=== PATIENT | female | born 1940 | race Caucasian/White ===

== ENCOUNTER → 2017-06-05 | Outpatient (CLI) | payer MEDICARE, OTHER ==
[~2017-06-05] MED LIST: BACTROBAN OINT22 GM EXT; GLUCOSAMINE CH1 EAC9; IOPAMIDOL 370 MG/ML 200 ML INFUS..BTL INJ ONE; MULTIVITAMIN1 EAC2 PO; SODIUM CHLORIDE 0.9% 100 ML ONE; Z.0.VICODIN 5-5001 E PO
[2017-06-05 12:38] LABS: BLOOD UREA NITROGEN 26 mg/dL (7-26); BUN/CREATININE RATIO 31 (6-25); CREATININE, SERUM 0.85 mg/dL (0.57-1.11); EST GLOMERULAR FILTRATION RATE > 60 ML/MIN (60-)
--- NOTE | 2017-06-05 18:24 | Diagnostic Imaging Report ---
History:Carotid stenosis, Comparison studies:CTA of the neck 06/15/2011. Carotid Doppler 08/22/2011 Technique: Axial images were obtained from the thoracic inlet. Coronal and sagittal images reconstructed from the axial data. Intravenous contrast: 100 cc of Omnipaque 300. Findings: Percentage of stenosis will be based on the NASCET criteria Aortic arch and major vessels: Patent. Atherosclerotic calcifications of the aortic arch and branches. Common carotid arteries: Patent. Atherosclerotic calcifications results in less than 20% stenosis. Right internal carotid artery: Complete occlusion of the right internal carotid artery cervical segment from the bulb to the distal cavernous segment. Atherosclerotic calcifications at the ophthalmic segment results in more than 70% stenosis. Reconstitution at the carotid terminus via collaterals of the [place] (A-com, P-comm). No hemodynamically significant stenosis of the MCA or HEENA Left internal carotid artery: Noncalcified atherosclerotic plaque at the bulb without stenosis, improved compared to the previous CTA. Atherosclerotic calcifications of the cavernous segment with less than 30% stenosis. No hemodynamically significant stenosis at the MCA and HEENA. Right vertebral artery: Patent. Atherosclerotic calcifications at the origin results in at least 50% stenosis, assessment is limited due to the high density of the atherosclerotic plaque causing blooming artifact. The remaining cervical vertebral artery appears patent. Left vertebral artery: Patent. Nonstenotic calcified plaque at the intradural segment (V4). Basilar artery: Patent. No abnormalities. Posterior cerebral arteries: Patent. No abnormalities. Anatomical variants: Acom: Patent . Pcoms: Patent. Vertebral arteries: Col-dominant Stable right thyroid lobe nodule IMPRESSION: Cervical CTA: 1. 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 2. Nonstenotic plaque at the left carotid bulb, improved from previous examination and likely related to previous intervention. 3. At least 50% stenosis at the origin of the right vertebral artery secondary to atherosclerotic plaque, calcification limits assessment of the stenosis. No other hemodynamically significant stenosis of the neck vessels Intracranial CTA: 1. Irregular flow at the [place] without hemodynamically significant stenosis. Signed by: DR Rell Kennedy M.D. on 06/05/2017 6:20 PM
--- NOTE | 2017-06-05 18:24 | Diagnostic Imaging Report ---
History:Carotid stenosis, Comparison studies:CTA of the neck 06/15/2011. Carotid Doppler 08/22/2011 Technique: Axial images were obtained from the thoracic inlet. Coronal and sagittal images reconstructed from the axial data. Intravenous contrast: 100 cc of Omnipaque 300. Findings: Percentage of stenosis will be based on the NASCET criteria Aortic arch and major vessels: Patent. Atherosclerotic calcifications of the aortic arch and branches. Common carotid arteries: Patent. Atherosclerotic calcifications results in less than 20% stenosis. Right internal carotid artery: Complete occlusion of the right internal carotid artery cervical segment from the bulb to the distal cavernous segment. Atherosclerotic calcifications at the ophthalmic segment results in more than 70% stenosis. Reconstitution at the carotid terminus via collaterals of the [place] (A-com, P-comm). No hemodynamically significant stenosis of the MCA or HEENA Left internal carotid artery: Noncalcified atherosclerotic plaque at the bulb without stenosis, improved compared to the previous CTA. Atherosclerotic calcifications of the cavernous segment with less than 30% stenosis. No hemodynamically significant stenosis at the MCA and HEENA. Right vertebral artery: Patent. Atherosclerotic calcifications at the origin results in at least 50% stenosis, assessment is limited due to the high density of the atherosclerotic plaque causing blooming artifact. The remaining cervical vertebral artery appears patent. Left vertebral artery: Patent. Nonstenotic calcified plaque at the intradural segment (V4). Basilar artery: Patent. No abnormalities. Posterior cerebral arteries: Patent. No abnormalities. Anatomical variants: Acom: Patent . Pcoms: Patent. Vertebral arteries: Col-dominant Stable right thyroid lobe nodule IMPRESSION: Cervical CTA: 1. 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 2. Nonstenotic plaque at the left carotid bulb, improved from previous examination and likely related to previous intervention. 3. At least 50% stenosis at the origin of the right vertebral artery secondary to atherosclerotic plaque, calcification limits assessment of the stenosis. No other hemodynamically significant stenosis of the neck vessels Intracranial CTA: 1. Irregular flow at the [place] without hemodynamically significant stenosis. Signed by: DR Rell Kennedy M.D. on 06/05/2017 6:20 PM
== END ==
LOC: CT 11:41
PROVIDERS: ATTEND Internal Medicine Cardiovascular Disease
DX: I65.22 Occlusion and stenosis of left carotid artery (principal)
CPT/HCPCS: 36415; 70496; 70498; 82565; 84520; J7050; Q9967

== ENCOUNTER → 2020-01-29 | Outpatient (CLI) | payer MEDICARE, OTHER ==
[2020-01-29 12:30] LABS: CREATININE, SERUM 0.94 mg/dL (0.57-1.11)
== END ==
LOC: CT 11:36
PROVIDERS: ATTEND Internal Medicine Cardiovascular Disease
DX: I65.23 Occlusion and stenosis of bilateral carotid arteries (principal)
CPT/HCPCS: 36415; 70498; 82565; 84520; J7050; Q9967

== ENCOUNTER → 2020-02-19 | Day surgery (SDC) | payer MEDICARE, OTHER ==
[2020-02-16 11:55] LABS: BASOPHILS % 0.7 % (0.0-1.0); EOSINOPHILS # (AUTO) 0.1 (0.0-0.4); EOSINOPHILS % 1.4 % (0.0-6.0); HEMATOCRIT 42.7 % (34.2-44.1); HEMOGLOBIN 13.6 g/dL (12.0-16.0); LYMPHOCYTES # (AUTO) 1.6 (1.0-3.2); LYMPHOCYTES % 27.7 % (18.0-39.1); MEAN CORPUSCULAR HEMOGLOBIN 28.6 pg (28-32); MEAN CORPUSCULAR HGB CONC 31.9 g/dL (31-35); MEAN CORPUSCULAR VOLUME 89.7 fL (81-99); MONOCYTES # (AUTO) 0.7 (0.2-0.8); NEUTROPHILS # (AUTO) 3.4 (2.1-6.9); PLATELET COUNT 177 x10e3/uL (140-360); RED BLOOD COUNT 4.76 x10e6/uL (3.6-5.1); RED CELL DISTRIBUTION WIDTH 13.9 % (11.7-14.4)
[2020-02-16 12:13] LABS: INR 0.95; PROTHROMBIN TIME 13.2 seconds (11.9-14.5)
[2020-02-16 12:21] LABS: ALBUMIN/GLOBULIN RATIO 1.2 (0.8-2.0); ANION GAP 15.4 mmol/L (8-16); CALCIUM 9.3 mg/dL (8.4-10.2); CREATININE, SERUM 0.96 mg/dL (0.57-1.11); POTASSIUM 4.4 mmol/L (3.5-5.1)
[2020-02-19] VITALS (7 sets, daily range): BP systolic 94–184; BP diastolic 63–90
[~2020-02-19] VITALS: Ht 170.2 cm; Wt 94.8 kg
[~2020-02-19] MED LIST changes: +ASPIRIN EC81 MG PO; +ATORVASTATIN CA20 MG PO; +CENTRUM SILVER1 EAC3 PO; +FENTANYL CITRATE/PF 100MCG/2 ML INJ ONE; +FIBER TABS625 MG PO; +HEPARIN SOD (PORCINE) 1000 UNIT/ML 30ML ONE; +HEPARIN SOD/SOD CHLORIDE 2,000 ML ONE; +LIDOCAINE HCL 2% LOCAL 20 ML VIAL ONE; +LOSARTAN POTAS100 MG PO; +MIDAZOLAM HCL 2 MG/2 ML VIAL ONE; +NITROGLYCERIN/D5W 200 MCG/ML 250 ML ONE; +PROZAC20 MG PO; -SODIUM CHLORIDE 0.9% 100 ML ONE; +SODIUM CHLORIDE 0.9% 1000ML 1,000 ML ONE; +VERAPAMIL HCL 2.5 MG/ML 2 ML VIAL ONE
== END | disposition home or self-care (01) ==
LOC: CATH LAB 06:16
PROVIDERS: ATTEND Internal Medicine Cardiovascular Disease
DX: I25.10 Atherosclerotic heart disease of native coronary artery without angina pectoris (principal); R94.39 Abnormal result of other cardiovascular function study; I77.1 Stricture of artery; R09.89 Other specified symptoms and signs involving the circulatory and respiratory systems; Z95.0 Presence of cardiac pacemaker; I65.29 Occlusion and stenosis of unspecified carotid artery; I10 Essential (primary) hypertension; E78.5 Hyperlipidemia, unspecified; Z01.812 Encounter for preprocedural laboratory examination; Z20.822 Contact with and (suspected) exposure to COVID-19; Z79.82 Long term (current) use of aspirin; Z68.34 Body mass index [BMI] 34.0-34.9, adult
CPT/HCPCS: 36415; 80053; 85025; 85610; 93458; 99152; 99153; C1887; J1644; J2001; J2250; J3010; J7030; Q9967; U0002

== ENCOUNTER 2020-06-28 10:48 | Outpatient (RCR) | payer MEDICARE, OTHER ==
[~2020-06-28 10:48] MED LIST changes: -FENTANYL CITRATE/PF 100MCG/2 ML INJ ONE; -HEPARIN SOD (PORCINE) 1000 UNIT/ML 30ML ONE; -HEPARIN SOD/SOD CHLORIDE 2,000 ML ONE; -IOPAMIDOL 370 MG/ML 200 ML INFUS..BTL INJ ONE; -LIDOCAINE HCL 2% LOCAL 20 ML VIAL ONE; -MIDAZOLAM HCL 2 MG/2 ML VIAL ONE; -NITROGLYCERIN/D5W 200 MCG/ML 250 ML ONE; -SODIUM CHLORIDE 0.9% 1000ML 1,000 ML ONE; -VERAPAMIL HCL 2.5 MG/ML 2 ML VIAL ONE
== END 2020-07-05 ==
LOC: OT 10:48
PROVIDERS: ATTEND Specialist
DX: M19.041 Primary osteoarthritis, right hand (principal); M25.541 Pain in joints of right hand; M72.0 Palmar fascial fibromatosis [Dupuytren]

== ENCOUNTER 2020-07-30 10:00 | Outpatient (RCR) | payer MEDICARE, OTHER | END 2020-08-04 | LOC: OT 10:00 | PROVIDERS: ATTEND Specialist | DX: M19.041 Primary osteoarthritis, right hand (principal); M72.0 Palmar fascial fibromatosis [Dupuytren]; M25.641 Stiffness of right hand, not elsewhere classified; R53.1 Weakness | CPT/HCPCS: 97010 ×3; 97110 ×4; 97140 ×2; L3921 ==

== ENCOUNTER 2020-08-05 09:48 | Outpatient (RCR) | payer MEDICARE, OTHER | END 2020-09-04 | LOC: OT 09:48 | PROVIDERS: ATTEND Specialist | DX: M19.041 Primary osteoarthritis, right hand (principal); M72.0 Palmar fascial fibromatosis [Dupuytren]; M25.541 Pain in joints of right hand; M25.641 Stiffness of right hand, not elsewhere classified; R53.1 Weakness ==

== ENCOUNTER 2021-07-25 18:36 | Emergency (ER) | payer MEDICARE, OTHER ==
[~2021-07-25] VITALS: Ht 170.2 cm; Wt 94.8 kg
[2021-07-25] MEDS ORDERED: ACETAMINOPHEN 325 MG TAB PO ONE ×2 (19:00)
[2021-07-25] MEDS ORDERED: MORPHINE SULFAT15 MG PO (20:31)
== END 2021-07-26 00:58 | disposition home or self-care (01) ==
LOC: ER 19:15
DX: S82.832A Other fracture of upper and lower end of left fibula, initial encounter for closed fracture (principal); X50.1XXA Overexertion from prolonged static or awkward postures, initial encounter; Y93.01 Activity, walking, marching and hiking; Y92.000 Kitchen of unspecified non-institutional (private) residence as the place of occurrence of the external cause
CPT/HCPCS: 70450; 72125; 99283